=== PATIENT | male | born 1940 | race Caucasian/White ===

== ENCOUNTER 2025-05-30 23:33 | Inpatient (IN) | payer MEDICAID ==
[~2025-05-30] VITALS: Ht 167.6 cm; Wt 75.4 kg
[2025-05-31 00:46] LABS: BASOPHILS % 0.8 % (0.0-2.0); EOSINOPHILS % 6.5 % (0.0-5.0); HEMATOCRIT. 47.2 % (42.0-52.0); HEMOGLOBIN. 15.6 g/dL (14.0-18.0); LYMPHOCYTES % 38.3 % (20.0-50.0); MEAN PLATELET VOLUME 8.2 fl (7.4-10.4); MONOCYTES % 11.5 % (2.0-8.0); NEUTROPHILS % 42.9 % (40.0-76.0); PLATELET 272 x1000/uL (130-400); RED BLOOD CELL COUNT 5.05 mill/uL (4.7-6.1); RED CELL DISTRIBUTION WIDTH 13.2 % (11.6-14.6)
[2025-05-31 01:13] LABS: CREATININE 1.2 mg/dL (0.6-1.3); UREA NITROGEN BLOOD 12 mg/dL (9-23)
[2025-05-31 01:14] LABS: ETHANOL BLOOD < 10 mg/dL (<10); PROTEIN TOTAL 7.0 g/dL (6.0-8.3); TROPONIN I HIGH SENSITIVITY < 4 ng/L (3.0-53)
[2025-05-31 01:15] LABS: ASPARTATE AMINOTRANSFERASE 29 IU/L (<34); BILIRUBIN DIRECT < 0.1 mg/dL (<=3.0)
[2025-05-31 01:16] LABS: BILIRUBIN TOTAL 0.3 mg/dL (0.1-1.0)
[2025-05-31 01:34] LABS: INR 1.0
[2025-05-31 02:50] VITALS: BP 166/85; PULSE 70; RESP 18; TEMP 36.974
[2025-05-31] MEDS ORDERED: IOHEXOL-350 100 ML BOTTLE ONE (02:58)
[2025-05-31] MEDS: IPRATROPIUM/ALBUTEROL 0.5-3(2.5)MG/3ML NEB HHN SCH (03:00)
[2025-05-31] MEDS ORDERED: ONDANSETRON HCL 4MG/2ML INJ IV PRN (04:30)
[2025-05-31] MEDS ORDERED: DOCUSATE SODIUM 100MG CAPSULE PO PRN (04:30)
[2025-05-31] MEDS ORDERED: GUAIFENESIN 200MG/10ML SUGAR FREE UDC PO PRN (04:30)
[2025-05-31] MEDS ORDERED: ACETAMINOPHEN 325MG TABLET PO PRN ×2 (04:30)
[2025-05-31] MEDS ORDERED: IPRATROPIUM/ALBUTEROL 0.5-3(2.5)MG/3ML NEB HHN PRN (04:30)
[2025-05-31] MEDS ORDERED: LORAZEPAM 2MG/ML UD SYRINGE IV PRN (04:45)
[2025-05-31] MEDS ORDERED: DEXTROSE 50% WATER 50ML SYRINGE IV PRN ×2 (05:00→17:30)
[2025-05-31] MEDS: ASPIRIN 325MG EC TABLET PO ONE (05:20)
[2025-05-31] MEDS: CEFTRIAXONE 1GM/50ML 50 ML IV SCH (05:31)
[2025-05-31] MEDS: METHYLPREDNISOLONE SOD SUCC 125MG/2ML (ACT-O-VIAL) IV NR (05:32)
[2025-05-31] MEDS: ASPIRIN 81MG EC TABLET PO SCH (05:38)
[2025-05-31] MEDS: ATORVASTATIN CALCIUM 40MG TABLET PO SCH (05:38)
[2025-05-31] MEDS: CARBAMAZEPINE 200MG TABLET PO SCH (05:38)
[2025-05-31] MEDS: CLONIDINE 0.1MG TABLET PO PRN (05:39)
[2025-05-31] MEDS: DEXT 5%/0.45% NACL 1000ML 1,000 ML IV SCH (06:15)
[2025-05-31] MEDS: AZITHROMYCIN 500MG/250ML 250 ML IV SCH (06:15)
[2025-05-31] MEDS: PANTOPRAZOLE 40MG DR TABLET PO SCH (06:55)
[2025-05-31] MEDS: BLOOD SUGAR DIAGNOSTIC STRIP TEST SCH ×2 (08:00→20:41)
[2025-05-31] MEDS: LOSARTAN 50 MG TABLET PO SCH (09:00)
[2025-05-31] MEDS ORDERED: ASPIRIN 81MG EC TABLET PO SCH (09:00)
[2025-05-31] MEDS: METHYLPREDNISOLONE SOD SUCC 40MG/ML (ACT-O-VIAL) IV SCH (10:54)
[2025-05-31 12:00] VITALS: BP 130/79; PULSE 87; RESP 18; TEMP 36.6; O2SAT 95
[2025-05-31 13:42] LABS: VITAMIN B12 SERUM 1295 pg/mL (211-911)
[2025-05-31 14:15] LABS: HEPATITIS C AB NON REACTIVE (Neg) (Negative)
[2025-05-31 14:29] VITALS: PULSE 92; RESP 14; O2SAT 90
[2025-05-31 16:00] VITALS: BP 92/59; PULSE 100; RESP 18; TEMP 36.6; O2SAT 95
[2025-05-31 19:06] LABS: TROPONIN I HIGH SENSITIVITY < 4 ng/L (3.0-53)
[2025-05-31 20:00] VITALS: BP 131/73; PULSE 87; RESP 16; TEMP 36.5; O2SAT 94
[2025-05-31] MEDS: INSULIN LISPRO 100 UNITS/ML SUBCUT SCH (20:42)
[2025-05-31 21:18] VITALS: PULSE 75; RESP 16; O2SAT 94
[2025-06-01] VITALS (9 sets, daily range): BP systolic 116–161; BP diastolic 56–89; PULSE 68–108; RESP 16–20; TEMP 36.4–37.1; O2SAT 93–97
[2025-06-01 00:05] LABS: CLARITY URINE CLEAR (CLEAR); COLOR URINE YELLOW (YELLOW); GLUCOSE URINE NEGATIVE (NEGATIVE); KETONES URINE NEGATIVE (NEGATIVE); LEUKOCYTE ESTERASE URINE NEGATIVE (NEGATIVE); NITRITE URINE NEGATIVE (NEGATIVE); OCCULT BLOOD URINE NEGATIVE (NEGATIVE); PH URINE 6.5 (4.5-8.0); PROTEIN URINE TRACE (NEGATIVE); SPECIFIC GRAVITY URINE 1.035 (1.005-1.030); UROBILINOGEN URINE 0.2 E.U./dL (0.2-1.0)
[2025-06-01 00:31] LABS: *AMPHETAMINES SCREEN URINE NEGATIVE (NEGATIVE); *BARBITURATES SCREEN URINE NEGATIVE (NEGATIVE); *BENZODIAZEPINES SCREEN URINE NEGATIVE (NEGATIVE); *COCAINE SCREEN URINE NEGATIVE (NEGATIVE); METHADONE URINE SCREEN NEGATIVE (NEGATIVE); OPIATES URINE SCREEN NEGATIVE (NEGATIVE); PHENCYCLIDINE URINE SCREEN NEGATIVE (NEGATIVE)
[2025-06-01 00:32] LABS: CANNABINOID URINE SCREEN NEGATIVE (NEGATIVE); ECSTASY MDMA SCREEN URINE NEGATIVE (NEGATIVE)
[2025-06-01 05:43] LABS: BACTERIA URINE NONE SEEN; RBC URINE 0-2 /hpf (0-2); SQUAMOUS EPITHELIAL CELL URINE NONE SEEN /lpf (RARE/1+); WBC URINE 0-2 /hpf (0-2)
[2025-06-01 07:54] LABS: T4 FREE 0.93 ng/dL (0.89-1.76); TRIGLYCERIDE 41 mg/dL (0-150)
[2025-06-01 07:58] LABS: ASPARTATE AMINOTRANSFERASE 17 IU/L (<34); CREATININE 1.4 mg/dL (0.6-1.3)
[2025-06-01 07:59] LABS: LDL CHOLESTEROL 54 mg/dL (5-100); PROTEIN TOTAL 6.0 g/dL (6.0-8.3); UREA NITROGEN BLOOD 16 mg/dL (9-23)
[2025-06-01 08:00] LABS: BILIRUBIN DIRECT < 0.1 mg/dL (<=3.0)
[2025-06-01 08:01] LABS: BASOPHILS % 0.1 % (0.0-2.0); BILIRUBIN TOTAL 0.3 mg/dL (0.1-1.0); EOSINOPHILS % 0.0 % (0.0-5.0); HEMATOCRIT. 40.1 % (42.0-52.0); HEMOGLOBIN. 13.4 g/dL (14.0-18.0); LYMPHOCYTES % 15.7 % (20.0-50.0); MEAN PLATELET VOLUME 8.0 fl (7.4-10.4); MONOCYTES % 4.5 % (2.0-8.0); NEUTROPHILS % 79.7 % (40.0-76.0); PLATELET 261 x1000/uL (130-400); RED BLOOD CELL COUNT 4.34 mill/uL (4.7-6.1); RED CELL DISTRIBUTION WIDTH 13.3 % (11.6-14.6)
[2025-06-01 17:26] LABS: BG BASE EXCESS -2.9 mmol/L (-2.0-3.0); BG CARBOXYHEMOGLOBIN 1.0 % (0.5-1.5); BG DEOXYHEMOGLOBIN 7.9 % (0.0-5.0); BG FLOW(L/min) 3.50 L/min; BG FRACTION INSPIRED OXYGEN 34; BG HCO3 ACT 20.8 mmol/L (21.0-28.0); BG METHEMOGLOBIN 0.1 % (0.5-1.5); BG OXYGEN SATURATION 92.0 % (94.0-98.0); BG OXYHEMOGLOBIN 91.0 % (94.0-98.0); BG PCO2 33.7 mmHg (35.0-48.0); BG PH 7.409 (7.350-7.450); BG PO2 62.5 mmHg (83.0-108.0); BG SAMPLE SITE RIGHT RADIAL; BG TOTAL HEMOGLOBIN 14.9 g/dL (13.5-17.5); BG VENT MODE NASAL CANNULA
[2025-06-02] VITALS (8 sets, daily range): BP systolic 127–179; BP diastolic 66–93; PULSE 78–108; RESP 16–20; TEMP 36.2–36.9; O2SAT 94–100
[2025-06-02] MEDS: AZITHROMYCIN 500 MG TABLET PO SCH (11:40)
[2025-06-02] MEDS: METHYLPREDNISOLONE SOD SUCC 40MG/ML (ACT-O-VIAL) IV SCH (20:00)
[2025-06-03] VITALS (10 sets, daily range): BP systolic 115–152; BP diastolic 60–84; PULSE 83–93; RESP 14–21; TEMP 36.3–36.7; O2SAT 92–98
[2025-06-03 07:14] LABS: BASOPHILS % 0.1 % (0.0-2.0); EOSINOPHILS % 0.2 % (0.0-5.0); HEMATOCRIT. 38.8 % (42.0-52.0); HEMOGLOBIN. 13.1 g/dL (14.0-18.0); LYMPHOCYTES % 23.4 % (20.0-50.0); MEAN PLATELET VOLUME 8.2 fl (7.4-10.4); MONOCYTES % 11.7 % (2.0-8.0); NEUTROPHILS % 64.6 % (40.0-76.0); PLATELET 268 x1000/uL (130-400); RED BLOOD CELL COUNT 4.21 mill/uL (4.7-6.1); RED CELL DISTRIBUTION WIDTH 13.2 % (11.6-14.6)
[2025-06-03 07:29] LABS: CREATININE 1.2 mg/dL (0.6-1.3)
[2025-06-03 07:30] LABS: UREA NITROGEN BLOOD 23 mg/dL (9-23)
[2025-06-03 07:32] LABS: PHOSPHORUS 3.2 mg/dL (2.5-4.9)
[2025-06-03] MEDS: ENOXAPARIN 40MG/0.4ML SYR SUBCUT SCH (18:38)
[2025-06-03] MEDS ORDERED: CAND1TAB17 MT (20:06)
[2025-06-03] MEDS ORDERED: ASPI-1497 PO (20:06)
[2025-06-03] MEDS ORDERED: ATOR40TA70 PO (20:06)
[2025-06-03] MEDS ORDERED: CARB400T13 MT (20:07)
[2025-06-03] MEDS ORDERED: VITA250012 PO (20:07)
== END 2025-06-03 21:22 | disposition home or self-care (01) | DRG 42 ==
LOC: ER 23:33 → EDBEDREQDT 05-31 02:06 → EDBEDREQ 05-31 02:06 → EDBEDREQTM 05-31 02:06 → 5WST 05-31 03:04
PROVIDERS: ADMIT Internal Medicine; ATTEND Internal Medicine
DX: F01.50 Vascular dementia, unspecified severity, without behavioral disturbance, psychotic disturbance, mood disturbance, and anxiety (principal); G93.41 Metabolic encephalopathy; I16.0 Hypertensive urgency; R13.10 Dysphagia, unspecified; J44.1 Chronic obstructive pulmonary disease with (acute) exacerbation; I69.354 Hemiplegia and hemiparesis following cerebral infarction affecting left non-dominant side; G40.909 Epilepsy, unspecified, not intractable, without status epilepticus; I65.21 Occlusion and stenosis of right carotid artery; R47.1 Dysarthria and anarthria; I10 Essential (primary) hypertension; D72.829 Elevated white blood cell count, unspecified; E78.5 Hyperlipidemia, unspecified; R73.9 Hyperglycemia, unspecified; G93.89 Other specified disorders of brain; R73.03 Prediabetes; Z74.01 Bed confinement status; Z79.82 Long term (current) use of aspirin; Z79.899 Other long term (current) drug therapy; Z88.8 Allergy status to other drugs, medicaments and biological substances
CPT/HCPCS: 36415; 36600; 70496; 70498; 70551; 71045; 80048; 80061; 80076; 80305; 80320; 81003; 82140; 82375; 82550; 82607; 82805; 82962; 83036; 83605; 83735; 83880; 84100; 84145; 84439; 84443; 84484; 85025; 86705; 87340; 92610; 93005; 93970; 94070; 94640; 94664; 97163; 97166; 99285; A4606; A4615; J0456; J0696; J1650; J1815; J2919; Q9967; G0480